=== PATIENT | female | born 1945 | race Caucasian/White ===

== ENCOUNTER 2020-02-22 09:25 | Observation (INO) ==
[2020-02-22] MEDS ORDERED: DOCUSATE SODIUM 100 MG CAPSULE PO PRN (09:46)
[2020-02-22] MEDS ORDERED: ACETAMINOPHEN 325 MG TABLET PO PRN (09:53)
[2020-02-22] MEDS ORDERED: ONDANSETRON 4 MG/2 ML VIAL IV PRN (09:53)
[2020-02-22 11:04] LABS: Basophils % 0.8 % (0.0-0.8); Eosinophils # 0.2 10*3/uL (0.0-0.87); Eosinophils % 3.7 % (0.00-10.9); Hematocrit 39.9 VOL% (35.7-47.0); Hemoglobin 12.9 GM/DL (12.0-16.0); Immature Granulocytes % 0.2 %; Immature Granulocytes Absolute 0.01 #; Lymphocytes # 1.6 10*3/uL (1.4-4.0); Mean Corpuscular HGB Conc 32.3 GM/DL (32-36); Mean Corpuscular Volume 101.3 FL (87-102); Monocytes % 10.2 % (1.7-12.7); Neutrophils % 54.1 % (38.7-73.9); Platelet Count 171 T/CUMM (130-400); Red Blood Count 3.94 MC/CUMM (3.8-5.5); Red Cell Distribution Width 12.9 % (9.3-17.3); White Blood Count 5.1 T/CUMM (4-12)
[2020-02-22 11:31] LABS: Albumin 3.7 G/DL (3.4-5.0); Bilirubin,Total 0.7 MG/DL (0.2-1.0); Calcium 9.1 MG/DL (8.5-10.1); Osmolality,Calculated 288.3 MOS/KG (273-304); Total Protein 7.3 G/DL (6.4-8.3)
[2020-02-22 11:45] LABS: Folate 16.1 NG/ML (5.4-24.0)
[2020-02-22] MEDS: ATORVASTATIN 40 MG TABLET PO SCH (14:08)
[2020-02-22] MEDS: ASPIRIN CHEW 81 MG TABLET PO SCH (14:08)
[2020-02-22] MEDS: SODIUM CHLORIDE 0.9% 1,000 ML IV SCH (16:11)
[2020-02-22 17:29] LABS: Apearance,Urine CLEAR (Clear); Bacteria,Urine Occasional /HPF (Few); Bilirubin,Urine Negative (Negative); Blood, Urine Negative (Negative); Glucose,Urine (UA) Negative (Negative); Ketones,Urine Negative (Negative); Mucus,Urine Occasional /LPF (Occasional); Nitrite,Urine Negative (Negative); Protein,Urine Negative; RBC,Urine 1 /HPF (0-4); Squamous Epithelial Cell,Urine Occasional /HPF (0-10); Urine Color Yellow (Yellow); Urine Specific Gravity 1.005 (1.001-1.035); Urine Urobilinogen < 2.0 EU/DL (0.2-1.0); WBC,Urine 13 /HPF (0-6)
[2020-02-22] MEDS ORDERED: DOCUSATE SODIUM 100 MG CAPSULE PO SCH (21:00)
[2020-02-22] MEDS: GABAPENTIN 300 MG CAPSULE PO SCH (21:20)
[2020-02-23] MEDS: SODIUM CHLORIDE 0.9% 1,000 ML IV SCH ×2 (01:54→09:10)
[2020-02-23 06:22] LABS: Risk Ratio 3.14; VLDL CHOLESTEROL 13.8 MG/DL
[2020-02-23] MEDS ORDERED: METOPROLOL TARTRATE 25 MG TABLET PO SCH (09:00)
[2020-02-23] MEDS ORDERED: hydroCHLOROthiazide 25 MG TABLET PO SCH (09:00)
[2020-02-23] MEDS ORDERED: lisinopriL 20 MG TABLET PO SCH (09:00)
[2020-02-23] MEDS ORDERED: PANTOPRAZOLE 40 MG TABLET PO SCH ×2 (09:00)
[2020-02-23] MEDS: ATORVASTATIN 40 MG TABLET PO SCH (09:08)
[2020-02-23] MEDS: ASPIRIN CHEW 81 MG TABLET PO SCH (09:09)
[2020-02-23] MEDS: GABAPENTIN 300 MG CAPSULE PO SCH (09:09)
[2020-02-23 11:43] VITALS: BP 131/74
== END 2020-02-23 14:25 | disposition home or self-care (01) ==
LOC: N.TELEN
PROVIDERS: ADMIT Family Medicine; ATTEND Family Medicine